=== PATIENT | female | born 1965 | race Native Hawaiian/Other Pacific Islander ===

== ENCOUNTER 2017-01-10 16:54 | Emergency (ER) | payer OTHER ==
[~2017-01-10] VITALS: Ht 167.6 cm; Wt 93.9 kg
[2017-01-10 17:00] VITALS: TEMP 98.5
[2017-01-10] MEDS ORDERED: GABA100C2 PO (17:11)
[2017-01-10] MEDS ORDERED: DIAZ2TAB PO (17:11)
[2017-01-10] MEDS ORDERED: MULTIVITAMIN OR (17:12)
[2017-01-10 17:34] LABS: PLATELET COUNT 320 K/uL (152-353)
[2017-01-10 17:40] LABS: POTASSIUM 3.4 mmol/L (3.6-5.2); SODIUM 137 mmol/L (136-145)
[2017-01-10 19:00] VITALS: BP 138/76
== END 2017-01-10 19:30 | disposition home or self-care (01) ==
LOC: ED 16:54
DX: N20.0 Calculus of kidney (principal); K57.30 Diverticulosis of large intestine without perforation or abscess without bleeding
CPT/HCPCS: 36415; 80053; 81000; 85027; 96374; 96375; 99284; J1170; J2405